=== PATIENT | male | born 1970 | race Caucasian/White ===

== ENCOUNTER 2019-06-20 14:17 | Emergency (ER) | payer SELFPAY ==
[~2019-06-20] VITALS: Ht 180.3 cm; Wt 70.5 kg
[2019-06-20] MEDS ORDERED: BACTRIM DS 8001 TAB PO (14:36)
[2019-06-20 14:43] LABS: HEMATOCRIT 41.5 % (42.0-52.0); HEMOGLOBIN 13.6 g/dL (13.5-18.0); MEAN CELL VOLUME 86 fl (78-100); MEAN CORPUSCULAR HEMOGLOBIN 28 pg (27-31); MEAN CORPUSCULAR HGB CONC 33 g/dL (33-37); MEAN PLATELET VOLUME 8.9 fl (7.4-10.4); PLATELET COUNT 181 K/mm3 (130-400); RED BLOOD COUNT 4.84 M/mm3 (4.20-5.60); RED CELL DISTRIBUTION WIDTH 12.1 % (11.5-14.5); WHITE BLOOD COUNT 14.2 K/mm3 (4.8-10.8)
[2019-06-20 14:49] LABS: BAND 4 % (0-10); LYMPHOCYTE 2 % (20-51); MONOCYTE 3 % (3-10); NEUTROPHILS 91 % (42-75)
[2019-06-20 14:51] LABS: ALBUMIN 3.6 g/dL (3.5-5.0); POTASSIUM 4.1 mmol/L (3.5-5.1)
[2019-06-20 14:52] LABS: CALCIUM 9.1 mg/dL (8.3-10.5)
[2019-06-20 14:53] LABS: TOTAL PROTEIN 6.5 g/dL (6.4-8.3)
[2019-06-20 14:55] LABS: TOTAL BILIRUBIN 0.8 mg/dL (0.2-1.2)
[2019-06-20] MEDS ORDERED: PHENERGAN 25 TA25 MG PO (16:07)
[2019-06-20 16:32] VITALS: BP 111/64
== END 2019-06-20 16:42 | disposition home or self-care (01) ==
LOC: ED 14:17
PROVIDERS: Nurse Practitioner
DX: N12 Tubulo-interstitial nephritis, not specified as acute or chronic (principal)
CPT/HCPCS: J0696

== ENCOUNTER 2021-01-26 09:11 | Emergency (ER) | payer SELFPAY ==
[~2021-01-26] VITALS: Wt 71.5 kg
[~2021-01-26 09:11] MED LIST: BACTRIM DS 8001 TAB PO; PHENERGAN 25 TA25 MG PO
[2021-01-26 09:59] LABS: BASO # 0.03 K/mm3 (0.02-0.10); EOS # 0.02 K/mm3 (0.04-0.40); EOS % 0.3 % (0.0-4.0); HEMATOCRIT 50.2 % (42.0-52.0); HEMOGLOBIN 16.4 g/dL (13.5-18.0); LYMPH# 0.97 K/mm3 (1.50-4.00); MEAN CELL VOLUME 89 fl (78-100); MEAN CORPUSCULAR HEMOGLOBIN 29 pg (27-31); MEAN CORPUSCULAR HGB CONC 33 g/dL (33-37); MEAN PLATELET VOLUME 9.8 fl (7.4-10.4); MONO # 0.41 K/mm3 (0.20-0.80); NEU # 4.86 K/mm3 (1.40-6.50); PLATELET COUNT 175 K/mm3 (130-400); RED BLOOD COUNT 5.65 M/mm3 (4.20-5.60); RED CELL DISTRIBUTION WIDTH 11.4 % (11.5-14.5); WHITE BLOOD COUNT 6.3 K/mm3 (4.8-10.8)
[2021-01-26 10:02] VITALS: BP 143/86
[2021-01-26 10:09] LABS: POTASSIUM 4.7 mmol/L (3.5-5.1)
[2021-01-26 10:10] LABS: CALCIUM 10.1 mg/dL (8.3-10.5)
[2021-01-26 10:13] LABS: TOTAL BILIRUBIN 0.7 mg/dL (0.2-1.2)
[2021-01-26 10:37] LABS: ALBUMIN 4.3 g/dL (3.5-5.0)
[2021-01-26 10:40] LABS: PROTHROMBIN TIME 10.4 SECONDS (9.0-12.0); TOTAL PROTEIN 7.4 g/dL (6.4-8.3)
== END 2021-01-26 10:16 | disposition short-term general hospital (02) ==
LOC: ED 09:11
PROVIDERS: Physician Assistant
DX: S72.92XB Unspecified fracture of left femur, initial encounter for open fracture type I or II (principal); W55.22XA Struck by cow, initial encounter
CPT/HCPCS: 90715; J0690; J3010

== ENCOUNTER → 2021-05-27 | Outpatient (CLI) | payer MEDICAID | LOC: RAD 12:18 | DX: S72.402D Unspecified fracture of lower end of left femur, subsequent encounter for closed fracture with routine healing (principal) ==

== ENCOUNTER 2021-06-13 14:53 | Outpatient (RCR) | payer MEDICAID | END 2021-06-23 | disposition home or self-care (01) | LOC: PT | DX: S72.402D Unspecified fracture of lower end of left femur, subsequent encounter for closed fracture with routine healing (principal); X58.XXXD Exposure to other specified factors, subsequent encounter ==

== ENCOUNTER 2021-06-27 09:55 | Outpatient (RCR) | payer MEDICAID | END 2021-07-23 | disposition still patient (30) | LOC: PT | DX: S72.492A Other fracture of lower end of left femur, initial encounter for closed fracture (principal) ==

== ENCOUNTER 2021-07-25 09:19 | Outpatient (RCR) | payer MEDICAID | END 2021-07-28 17:00 | disposition still patient (30) | LOC: PT 09:19 | DX: S72.402B Unspecified fracture of lower end of left femur, initial encounter for open fracture type I or II (principal) ==